=== PATIENT | male | born 1955 | race Caucasian/White ===

== ENCOUNTER 2024-02-16 15:22 | Inpatient (IN) | payer BC, MEDICARE ==
[2024-02-16] MEDS ORDERED: Senokot S 8.6-50 MG TAB PO PRN (17:07)
[2024-02-16] MEDS ORDERED: Calcium Carbonate 500 MG ChewTAB PO PRN (17:07)
[2024-02-16] MEDS: Sodium Chloride 0.9% 1,000 ML IV SCH (17:31)
[2024-02-16] MEDS: Morphine 2 MG/ML VIAL SLOW IVP PRN (17:31)
[2024-02-16 17:50] LABS: ALT (SGPT) 234 U/L (8-55); AST (SGOT) 155 U/L (5-34); Albumin 3.7 g/dL (3.4-4.8); Alkaline Phosphatase 166 U/L (40-110); Anion Gap 16 mmol/L (10-20); BUN (Urea Nitrogen) 42 mg/dL (8.4-25.7); Bilirubin, Total 3.3 mg/dL (0.2-1.2); Calc. Creatinine Clearance 25 mL/min (70-130); Calcium 8.6 mg/dL (7.8-10.44); Carbon Dioxide 24 mmol/L (23-31); Chloride 101 mmol/L (98-107); Estimated GFR 14; Globulin 2.9 g/dL (2.4-3.5); Glucose 123 mg/dL (80-115); Potassium 4.8 mmol/L (3.5-5.1); Protein, Total 6.6 g/dL (5.8-8.1); Sodium 136 mmol/L (136-145)
[2024-02-16] MEDS ORDERED: Morphine 2 MG/ML VIAL SLOW IVP PRN (17:59)
[2024-02-16] MEDS: Morphine 2 MG/ML VIAL SLOW IVP SCH (18:00)
[2024-02-16] MEDS: Albumin 25% 25 GM (100 mL) BOT IVPB SCH ×2 (18:42→23:40)
[2024-02-16] MEDS: Pantoprazole DR 40 MG TAB PO SCH (21:36)
[2024-02-16] MEDS: Carvedilol 6.25 MG TAB PO SCH (21:36)
[2024-02-16] MEDS: Famotidine/PF 20 mg/2ml Vial SLOW IVP SCH (21:37)
[2024-02-16] MEDS: Morphine 4 MG/ML VIAL SLOW IVP PRN (21:41)
[2024-02-16] MEDS: Ondansetron PF 4 MG/2 ML Vial IVP PRN (22:09)
[2024-02-16] MEDS: Sodium Chloride 0.9% 500 ML IV SCH (23:07)
[2024-02-17 00:45] LABS: #Basophils Less than 0.03 10x3/uL (0.0-0.2); #Eosinophils Less than 0.03 10x3/uL (0.0-0.7); %Basophils 0.1 % (0.0-1.0); %Lymphocytes 8.4 % (21.0-51.0); %Monocytes 6.3 % (0.0-10.0); %Neutrophils 84.5 % (42.0-75.0); Hematocrit 39.5 % (42.0-52.0); Hemoglobin 12.9 g/dL (14.0-18.0); Mean Corpuscular HGB CONC 32.7 g/dL (32.0-36.0); Mean Corpuscular Hemoglobin 31.5 pg (27.0-31.0); Mean Corpuscular Volume 96.3 fL (78.0-98.0); Mean Platelet Volume 9.2 fL (7.4-10.4); Platelet Count 95 10x3/uL (130-400); RBC Distribution Width 13.2 % (11.5-14.5)
[2024-02-17 00:57] LABS: ALT (SGPT) 169 U/L (8-55); AST (SGOT) 98 U/L (5-34); Albumin 3.9 g/dL (3.4-4.8); Alkaline Phosphatase 124 U/L (40-110); Anion Gap 17 mmol/L (10-20); BUN (Urea Nitrogen) 46 mg/dL (8.4-25.7); Bilirubin, Total 2.2 mg/dL (0.2-1.2); Calc. Creatinine Clearance 26 mL/min (70-130); Calcium 7.7 mg/dL (7.8-10.44); Carbon Dioxide 18 mmol/L (23-31); Chloride 106 mmol/L (98-107); Estimated GFR 15; Globulin 2.3 g/dL (2.4-3.5); Glucose 107 mg/dL (80-115); Magnesium 1.7 mg/dL (1.6-2.6); Potassium 4.7 mmol/L (3.5-5.1); Protein, Total 6.2 g/dL (5.8-8.1); Sodium 136 mmol/L (136-145)
[2024-02-17 04:19] LABS: #Basophils Less than 0.03 10x3/uL (0.0-0.2); #Eosinophils Less than 0.03 10x3/uL (0.0-0.7); %Basophils 0.1 % (0.0-1.0); %Lymphocytes 8.1 % (21.0-51.0); %Monocytes 6.3 % (0.0-10.0); Hematocrit 41.2 % (42.0-52.0); Hemoglobin 12.9 g/dL (14.0-18.0); Mean Corpuscular HGB CONC 31.3 g/dL (32.0-36.0); Mean Corpuscular Hemoglobin 31.1 pg (27.0-31.0); Mean Corpuscular Volume 99.3 fL (78.0-98.0); Mean Platelet Volume 9.4 fL (7.4-10.4); Platelet Count 88 10x3/uL (130-400); RBC Distribution Width 13.2 % (11.5-14.5); Red Blood Cell (RBC) Count 4.15 mill/uL (4.70-6.10)
[2024-02-17 04:25] LABS: CRP,High Sensitivity (Inhouse) 9.62 mg/dL (< or = 0.5)
[2024-02-17 04:43] LABS: ALT (SGPT) 154 U/L (8-55); AST (SGOT) 84 U/L (5-34); BUN (Urea Nitrogen) 51 mg/dL (8.4-25.7); Calc. Creatinine Clearance 25 mL/min (70-130); Cardiac Risk 3.3 (Less than 4.5); Cholesterol 72 mg/dl (< 200 Desired); Estimated GFR 14; HDL Cholesterol 22 mg/dL (>60 Neg Risk); LDL Cholesterol, Calculated 27 mg/dL; Magnesium 1.7 mg/dL (1.6-2.6)
[2024-02-17 04:44] LABS: Albumin 3.9 g/dL (3.4-4.8); Alkaline Phosphatase 115 U/L (40-110); Anion Gap 16 mmol/L (10-20); Bilirubin, Total 2.3 mg/dL (0.2-1.2); Calcium 7.5 mg/dL (7.8-10.44); Carbon Dioxide 21 mmol/L (23-31); Chloride 105 mmol/L (98-107); Globulin 2.3 g/dL (2.4-3.5); Glucose 109 mg/dL (80-115); Potassium 4.9 mmol/L (3.5-5.1); Protein, Total 6.2 g/dL (5.8-8.1); Sodium 137 mmol/L (136-145); Triglycerides 116 mg/dL (Less than 150)
[2024-02-17] MEDS: Ketorolac Tromethamine 30 MG (1 mL) VIAL IVP SCH (05:46)
[2024-02-17 05:50] LABS: Lipase Greater than 300 U/L (8-78)
[2024-02-17] MEDS: Enoxaparin 30 MG (0.3 mL) SYRINGE SC SCH (09:33)
[2024-02-17] MEDS: Aspirin 81 mg Enteric Coated Tablet PO SCH (09:33)
[2024-02-17] MEDS: Sodium Chloride 0.9% 1,000 ML IV SCH ×2 (09:34→18:37)
[2024-02-17] MEDS ORDERED: Morphine 4 MG/ML VIAL SLOW IVP PRN (09:52)
[2024-02-17] MEDS: Morphine 2 MG/ML VIAL SLOW IVP PRN (10:19)
[2024-02-17] MEDS: Albumin 25% 25 GM (100 mL) BOT IVPB SCH (11:34)
[2024-02-17] MEDS: Piperacillin/Tazobactam 3.375 GM in Sodium Chloride 0.9% 100 ML IVPB SCH ×2 (14:30→17:21)
[2024-02-17] MEDS ORDERED: traMADol HCl 50 MG TAB PO PRN (16:59)
[2024-02-17] MEDS ORDERED: Sodium Chloride 0.9% 1,000 ML IV SCH (17:46)
[2024-02-17] MEDS ORDERED: Piperacillin/Tazobactam 3.375 GM in Sodium Chloride 0.9% 100 ML IVPB SCH (18:00)
[2024-02-17] MEDS: Febuxostat 40 MG TAB PO SCH (21:19)
[2024-02-17] MEDS: Acetaminophen 325 MG TAB PO PRN (23:20)
[2024-02-18 05:21] LABS: INR-International Normal Ratio 1.3; Prothrombin Time 16.1 sec (12.0-14.7)
[2024-02-18 05:26] LABS: Lactic Acid 1.29 mmol/L (0.5-2.2)
[2024-02-18 05:32] LABS: ALT (SGPT) 79 U/L (8-55); AST (SGOT) 33 U/L (5-34); Albumin 4.2 g/dL (3.4-4.8); Alkaline Phosphatase 68 U/L (40-110); Anion Gap 18 mmol/L (10-20); BUN (Urea Nitrogen) 63 mg/dL (8.4-25.7); Bilirubin, Direct 1.3 mg/dL (0.1-0.3); Bilirubin, Total 2.2 mg/dL (0.2-1.2); Calc. Creatinine Clearance 25 mL/min (70-130); Carbon Dioxide 20 mmol/L (23-31); Chloride 105 mmol/L (98-107); Estimated GFR 14; Glucose 112 mg/dL (80-115); Potassium 4.5 mmol/L (3.5-5.1); Protein, Total 6.4 g/dL (5.8-8.1); Sodium 138 mmol/L (136-145)
[2024-02-18 05:36] LABS: Hematocrit 38.8 % (42.0-52.0); Hemoglobin 12.6 g/dL (14.0-18.0); Mean Corpuscular HGB CONC 32.5 g/dL (32.0-36.0); Mean Corpuscular Hemoglobin 31.6 pg (27.0-31.0); Mean Corpuscular Volume 97.2 fL (78.0-98.0); Mean Platelet Volume 10.3 fL (7.4-10.4); Platelet Count 63 10x3/uL (130-400); RBC Distribution Width 13.8 % (11.5-14.5); Red Blood Cell (RBC) Count 3.99 mill/uL (4.70-6.10)
[2024-02-18 06:08] LABS: Band 19 % (5-11); Burr Cells SLIGHT = 2-5 cells HPF (0-1); Dohle Bodies SLIGHT; Lymphocytes 8 % (21-51); Metamyelocyte 2 % (0-0); Monocytes 6 % (0-10); Neutrophil 65 % (42-75); Platelet Adequacy Comment Platelets Decreased; Polychromasia SLIGHT = 2-3 cells HPF (0-2); Tear Drops SLIGHT = 2-5 cells HPF (0-1); Toxic Granulation SLIGHT
[2024-02-18] MEDS: traMADol HCl 50 MG TAB PO PRN (08:39)
[2024-02-18] MEDS: fentaNYL 50 mcg/mL 1 mL Vial SLOW IVP PRN (12:50)
[2024-02-18] MEDS ORDERED: Ondansetron PF 4 MG/2 ML Vial IVP PRN (13:38)
[2024-02-18] MEDS: Ondansetron PF 4 MG/2 ML Vial IVP SCH (14:23)
[2024-02-18] MEDS: Folic Acid 1 MG TAB PO SCH (16:47)
[2024-02-18] MEDS: Thiamine 100 MG TAB PO SCH (16:47)
[2024-02-19 05:25] LABS: Hematocrit 37.1 % (42.0-52.0); Hemoglobin 12.2 g/dL (14.0-18.0); Mean Corpuscular HGB CONC 32.9 g/dL (32.0-36.0); Mean Corpuscular Volume 94.2 fL (78.0-98.0); Mean Platelet Volume 10.4 fL (7.4-10.4); Platelet Count 79 10x3/uL (130-400); RBC Distribution Width 13.5 % (11.5-14.5); Red Blood Cell (RBC) Count 3.94 mill/uL (4.70-6.10)
[2024-02-19 05:41] LABS: ALT (SGPT) 50 U/L (8-55); AST (SGOT) 21 U/L (5-34); Albumin 3.4 g/dL (3.4-4.8); Alkaline Phosphatase 51 U/L (40-110); Anion Gap 14 mmol/L (10-20); BUN (Urea Nitrogen) 53 mg/dL (8.4-25.7); Bilirubin, Total 1.5 mg/dL (0.2-1.2); Calc. Creatinine Clearance 36 mL/min (70-130); Calcium 6.9 mg/dL (7.8-10.44); Carbon Dioxide 17 mmol/L (23-31); Chloride 110 mmol/L (98-107); Estimated GFR 22; Globulin 2.5 g/dL (2.4-3.5); Glucose 116 mg/dL (80-115); Potassium 3.9 mmol/L (3.5-5.1); Protein, Total 5.9 g/dL (5.8-8.1); Sodium 137 mmol/L (136-145)
[2024-02-19 06:12] LABS: Anisocytosis SLIGHT = 6-15 cells HPF (0-5); Band 24 % (5-11); Burr Cells SLIGHT = 2-5 cells HPF (0-1); Eosinophils 1 % (0-10); Lymphocytes 13 % (21-51); Monocytes 3 % (0-10); Neutrophil 59 % (42-75); Ovalocytes SLIGHT = 2-5 cells HPF (0-1); Platelet Adequacy Comment Platelets Decreased; Poikilocytosis SLIGHT = 6-15 cells HPF (0-5); Polychromasia SLIGHT = 2-3 cells HPF (0-2)
[2024-02-19] MEDS ORDERED: Magnesium Sulfate 4 GM in Sodium Chloride 0.9% 250 ML 250 ML IVPB SCH (08:45)
[2024-02-19] MEDS: Potassium Chloride 20 MEQ TAB PO SCH (08:58)
[2024-02-19] MEDS ORDERED: Magnesium Sulfate In Water 4 GM in Premix 1 BAG IVPB SCH (10:00)
[2024-02-19] MEDS: Magnesium 2 GM/50 ML(in water) 2 GM in Premix 1 BAG IVPB SCH (10:03)
[2024-02-19] MEDS: CALCIUM GLUC 1 GM/NS 50 ML 1 GM in Premix 1 BAG IVPB SCH (12:20)
[2024-02-19] MEDS: Sodium Bicarbonate Tab 325 MG TAB PO SCH (14:28)
[2024-02-19] MEDS: Piperacillin/Tazobactam 3.375 GM in Sodium Chloride 0.9% 100 ML IVPB SCH (16:50)
[2024-02-20 04:58] LABS: ALT (SGPT) 38 U/L (8-55); AST (SGOT) 22 U/L (5-34); Alkaline Phosphatase 55 U/L (40-110); Anion Gap 14 mmol/L (10-20); BUN (Urea Nitrogen) 37 mg/dL (8.4-25.7); Bilirubin, Total 1.5 mg/dL (0.2-1.2); Calc. Creatinine Clearance 47 mL/min (70-130); Calcium 7.7 mg/dL (7.8-10.44); Carbon Dioxide 21 mmol/L (23-31); Chloride 110 mmol/L (98-107); Estimated GFR 30; Globulin 2.8 g/dL (2.4-3.5); Glucose 105 mg/dL (80-115); Lipase 52 U/L (8-78); Potassium 4.8 mmol/L (3.5-5.1); Protein, Total 5.8 g/dL (5.8-8.1); Sodium 140 mmol/L (136-145)
[2024-02-20 05:18] LABS: Hematocrit 36.7 % (42.0-52.0); Mean Corpuscular HGB CONC 32.7 g/dL (32.0-36.0); Mean Corpuscular Hemoglobin 31.2 pg (27.0-31.0); Mean Corpuscular Volume 95.3 fL (78.0-98.0); Platelet Count 105 10x3/uL (130-400); Red Blood Cell (RBC) Count 3.85 mill/uL (4.70-6.10)
[2024-02-20 06:10] LABS: Anisocytosis SLIGHT = 6-15 cells HPF (0-5); Band 14 % (5-11); Burr Cells SLIGHT = 2-5 cells HPF (0-1); Dohle Bodies SLIGHT; Eosinophils 1 % (0-10); Lymphocytes 9 % (21-51); Metamyelocyte 1 % (0-0); Monocytes 11 % (0-10); Neutrophil 63 % (42-75); Platelet Adequacy Comment Platelets Decreased; Polychromasia SLIGHT = 2-3 cells HPF (0-2); Toxic Granulation SLIGHT
[2024-02-20] MEDS: Amlodipine 10 MG TAB PO SCH (10:01)
[2024-02-20] MEDS: Furosemide 40 MG (4 mL) VIAL SLOW IVP SCH (10:02)
[2024-02-20] MEDS: Polyethylene Glycol 3350 17 GM Packet PO SCH (13:17)
[2024-02-20] MEDS: Bisacodyl 5 MG TAB PO SCH (13:17)
[2024-02-20] MEDS: Senokot S 8.6-50 MG TAB PO SCH (21:20)
[2024-02-21 05:36] LABS: Hematocrit 37.4 % (42.0-52.0); Hemoglobin 12.4 g/dL (14.0-18.0); Mean Corpuscular HGB CONC 33.2 g/dL (32.0-36.0); Mean Corpuscular Hemoglobin 31.4 pg (27.0-31.0); Mean Corpuscular Volume 94.7 fL (78.0-98.0); Platelet Count 134 10x3/uL (130-400); Red Blood Cell (RBC) Count 3.95 mill/uL (4.70-6.10)
[2024-02-21 05:38] LABS: ALT (SGPT) 35 U/L (8-55); AST (SGOT) 28 U/L (5-34); Albumin 2.8 g/dL (3.4-4.8); Alkaline Phosphatase 64 U/L (40-110); Anion Gap 13 mmol/L (10-20); BUN (Urea Nitrogen) 30 mg/dL (8.4-25.7); Bilirubin, Total 1.5 mg/dL (0.2-1.2); Calc. Creatinine Clearance 54 mL/min (70-130); Carbon Dioxide 23 mmol/L (23-31); Chloride 108 mmol/L (98-107); Estimated GFR 36; Globulin 3.2 g/dL (2.4-3.5); Glucose 116 mg/dL (80-115); Magnesium 1.5 mg/dL (1.6-2.6); Potassium 3.8 mmol/L (3.5-5.1); Sodium 140 mmol/L (136-145)
[2024-02-21 06:37] VITALS: BMI 33.9
[2024-02-21 06:54] LABS: Anisocytosis SLIGHT = 6-15 cells HPF (0-5); Band 16 % (5-11); Burr Cells SLIGHT = 2-5 cells HPF (0-1); Dohle Bodies SLIGHT; Lymphocytes 7 % (21-51); Macrocytosis SLIGHT = 6-15 cells HPF (0-5); Metamyelocyte 2 % (0-0); Monocytes 7 % (0-10); Myelocyte 2 % (0-0); Neutrophil 64 % (42-75); Platelet Adequacy Comment Platelets Decreased; Poikilocytosis SLIGHT = 6-15 cells HPF (0-5); Polychromasia SLIGHT = 2-3 cells HPF (0-2); Promyelocytes 1 % (0-0); Toxic Granulation MODERATE
[2024-02-21] MEDS: Polyethylene Glycol 3350 17 GM Packet PO SCH (09:14)
[2024-02-21] MEDS: Magnesium 2 GM/50 ML(in water) 2 GM in Premix 1 BAG IVPB SCH (09:19)
[2024-02-21] MEDS ORDERED: EPINEPHrine 1 MG/ML VIAL ONE (12:43)
[2024-02-21] MEDS ORDERED: Bupivacaine PF 0.5% 30 ML VIAL ONE (12:43)
[2024-02-21] MEDS ORDERED: Lidocaine 2% PF 5 ML VIAL ONE (12:59)
[2024-02-21] MEDS ORDERED: fentaNYL PF 100 MCG/2 ML SYRINGE ONE (12:59)
[2024-02-21] MEDS ORDERED: Midazolam HCl 2 mg/2 ml Vial ONE (12:59)
[2024-02-21] MEDS ORDERED: PROPOFOL 20 ML ONE (12:59)
[2024-02-21] MEDS ORDERED: PHENYLEPHRINE-NS 100 MCG/ML 10 ML SYRINGE ONE (12:59)
[2024-02-21] MEDS ORDERED: Rocuronium Bromide 10 MG/ML (10ML VIAL) ONE (12:59)
[2024-02-21] MEDS ORDERED: Ondansetron PF 4 MG/2 ML Vial ONE ×2 (14:01→15:17)
[2024-02-21] MEDS ORDERED: Dexamethasone 4 mg/ml Vial ONE ×2 (14:01→15:17)
[2024-02-21] MEDS ORDERED: SUGAMMADEX SODIUM 200 MG/2 ML VIAL ONE ×2 (14:01→15:29)
[2024-02-21] MEDS ORDERED: Morphine 4 MG/ML VIAL SLOW IVP PRN (14:33)
[2024-02-21] MEDS ORDERED: Dexmedetomidine 200 MCG/2 ML VIAL ONE (15:22)
[2024-02-21] MEDS: Acetaminophen 500 MG TAB PO SCH (16:57)
[2024-02-21] MEDS: Lactated Ringer's 1,000 ML IV SCH (16:57)
[2024-02-21] MEDS: Enoxaparin 40 MG (0.4 mL) SYRINGE SC SCH (19:46)
[2024-02-22 06:06] LABS: Hematocrit 36.7 % (42.0-52.0); Hemoglobin 11.8 g/dL (14.0-18.0); Mean Corpuscular HGB CONC 32.2 g/dL (32.0-36.0); Mean Corpuscular Hemoglobin 31.1 pg (27.0-31.0); Mean Corpuscular Volume 96.8 fL (78.0-98.0); Mean Platelet Volume 10.1 fL (7.4-10.4); Platelet Count 136 10x3/uL (130-400); RBC Distribution Width 14.6 % (11.5-14.5); Red Blood Cell (RBC) Count 3.79 mill/uL (4.70-6.10)
[2024-02-22 06:19] LABS: ALT (SGPT) 131 U/L (8-55); AST (SGOT) 234 U/L (5-34); Albumin 2.7 g/dL (3.4-4.8); Alkaline Phosphatase 83 U/L (40-110); Anion Gap 11 mmol/L (10-20); BUN (Urea Nitrogen) 32 mg/dL (8.4-25.7); Bilirubin, Total 0.8 mg/dL (0.2-1.2); Calc. Creatinine Clearance 58 mL/min (70-130); Calcium 8.4 mg/dL (7.8-10.44); Carbon Dioxide 22 mmol/L (23-31); Chloride 109 mmol/L (98-107); Estimated GFR 39; Globulin 3.3 g/dL (2.4-3.5); Glucose 130 mg/dL (80-115); Potassium 4.4 mmol/L (3.5-5.1); Sodium 138 mmol/L (136-145)
[2024-02-22 07:07] LABS: Band 25 % (5-11); Lymphocytes 6 % (21-51); Metamyelocyte 1 % (0-0); Monocytes 2 % (0-10); Myelocyte 2 % (0-0); Neutrophil 63 % (42-75); Platelet Adequacy Comment Platelets Normal; Polychromasia SLIGHT = 2-3 cells HPF (0-2); Reactive Lymphocytes 1 % (0-10)
[2024-02-22 08:09] VITALS: BP 130/78; TEMP 98.2
== END 2024-02-22 10:38 | disposition home or self-care (01) | DRG 417 ==
LOC: 2NO 15:44 → SURG A 02-20 16:56
PROVIDERS: ADMIT Internal Medicine; ATTEND Internal Medicine
PROC: 0FT44ZZ Resection of Gallbladder, Percutaneous Endoscopic Approach (ICD-10-PCS; principal; 2024-02-21)
DX: K85.10 Biliary acute pancreatitis without necrosis or infection (principal); J18.9 Pneumonia, unspecified organism; J96.01 Acute respiratory failure with hypoxia; E87.20 Acidosis, unspecified; I13.0 Hypertensive heart and chronic kidney disease with heart failure and stage 1 through stage 4 chronic kidney disease, or unspecified chronic kidney disease; N17.9 Acute kidney failure, unspecified; I50.32 Chronic diastolic (congestive) heart failure; J98.11 Atelectasis; K21.9 Gastro-esophageal reflux disease without esophagitis; I25.10 Atherosclerotic heart disease of native coronary artery without angina pectoris; E78.5 Hyperlipidemia, unspecified; N18.30 Chronic kidney disease, stage 3 unspecified; E66.9 Obesity, unspecified; E87.6 Hypokalemia; K80.20 Calculus of gallbladder without cholecystitis without obstruction; E83.42 Hypomagnesemia; Z68.33 Body mass index [BMI] 33.0-33.9, adult; Z95.5 Presence of coronary angioplasty implant and graft; Z79.82 Long term (current) use of aspirin; Z79.899 Other long term (current) drug therapy; Z95.1 Presence of aortocoronary bypass graft; Z95.0 Presence of cardiac pacemaker; Z95.2 Presence of prosthetic heart valve; F10.10 Alcohol abuse, uncomplicated; Z71.41 Alcohol abuse counseling and surveillance of alcoholic; E87.70 Fluid overload, unspecified; E83.51 Hypocalcemia
CPT/HCPCS: 36415; 71045; 74018; 74176; 76705; 80048; 80053; 80061; 80076; 82247; 82248; 82310; 83605; 83690; 83735; 83880; 84145; 85025; 85610; 85730; 86141; 86850; 86900; 86901; 88304; 93005; 93010; 93306; 96372; 96374; 96375; C1889; J0171; J0613; J0665; J1100; J1650; J1885; J1940; J2250; J2272; J2405; J2543; J2704; J3010; J3475; J3490; J7030; J7120; P9047